=== PATIENT | female | born 1960 | race Caucasian/White ===

== ENCOUNTER 2024-01-10 13:32 | Emergency (ER) | payer OTHER, SELFPAY ==
[2024-01-10 13:33] VITALS: BP 132/66
[2024-01-10 13:36] VITALS: BP 132/66; BMI 28.1
[2024-01-10 14:00] VITALS: BP 148/75
--- NOTE | 2024-01-10 14:46 | ED.GENMED ---
History of Present Illness
General
Chief Complaint: Musculo-Skeletal Complaint
Time Seen by Provider: 01/10/24 14:02
History of Present Illness
History of Present Illness:
63-year-old female presents to the emergency department for evaluation of left knee pain after a fall. She landed directly on the left knee and is now not able to move the leg. Has minimal pain when at rest
Review of Systems
Review of Systems
Allergies reviewed?: Yes
All Other Systems: ROS reviewed and negative except as documented in HPI and ROS
Phy Exam
Physical Exam
Physical Exam:
GEN: Well appearing, NAD, WDWN
HEENT: Oral mucosa moist, no scleral icterus
Cardiac: Regular rate
Lung: No respiratory distress, no tachypnea
MSK: Severe swelling of the left patella with a palpable deformity to the patellar tendon at the tibial insertion site, unable to perform straight leg raise
Skin: Good color, no pallor or jaundice, no rashes
Neuro: AO x3, moves all extremities freely
Psych: Calm, cooperative
Course
Orders/Labs/Results
Orders:
Orders
01/10/24 13:44
CR Knee - Left 1 Or 2 Views Urgent
Comment:
Reason For Exam: Fall, pain, swelling, decreased ROM
Vital Signs
Initial and Last Documented VS:
Initial Vital Signs
BP
132/66
01/10/24 13:33
Last Documented Vital Signs
Temp Pulse Resp BP Pulse Ox
98.5 F 67 20 146/76 99
01/10/24 13:36 01/10/24 13:36 01/10/24 13:36 01/10/24 15:07 01/10/24 15:15
MDM/Problems Addressed
MDM/Problems Addressed:
X-rays reveal a mid pole patella fracture. There is likely a component of partial patella tendon rupture clinically as well. Placed in the immobilizer and recommend nonweightbearing until Ortho follow-up
*Critical Care Note
Total Time (30-74mins, 75-104mins- exclusive of procedures): Not Applicable
ED Attending Note
-
Portions of this chart may have been created with voice recognition software.� Occasional wrong word or��sound alike� substitutions may have occurred due to the inherent limitations of voice recognition software.
Discharge Plan
Departure
Patient Disposition: Home (Routine Discharge)
Date of Disposition: 01/10/24
Time of Disposition: 14:47
Patient with high blood pressure during this ER visit?: No
Discharge Problem:
Patellar fracture, Rupture of left patellar tendon
Instructions: Patella Fracture (DC)
Prescriptions:
New
oxycodone-acetaminophen [Percocet] 5-325 mg tablet
1 tab PO Q6HPRN PRN (Reason: pain) Qty: 8 0RF
Referrals:
Marco A Moreno MD [Active] - Call in 1-3 days for appt
Interventions
Interventions:
*Risk Screen - Suicide Last Done: 01/10/24 13:36
*General Assessment Last Done: 01/10/24 13:36
*Neglect/Abuse Screening Last Done: 01/10/24 13:36
ED- Fall Risk Assessment Last Done: 01/10/24 13:36
*ED COVID-19 Vaccine History Last Done: 01/10/24 13:36
*Nursing Disposition Last Done: 01/10/24 15:47
ED-Musculoskeletal Assessment Last Done: 01/10/24 13:36
Discharge Date and Time
Discharge Date/Time: 01/10/24 15:48
Print Language: [id number]
[2024-01-10 15:07] VITALS: BP 146/76
== END 2024-01-10 15:48 | disposition home or self-care (01) ==
LOC: EMR 13:32
PROVIDERS: EMERGENCY PHYSICIAN Emergency Medicine
DX: S82.092A Other fracture of left patella, initial encounter for closed fracture (principal); S76.112A Strain of left quadriceps muscle, fascia and tendon, initial encounter; W19.XXXA Unspecified fall, initial encounter
CPT/HCPCS: 99283; 29505; 73560